=== PATIENT | male | born 1940 | race Caucasian/White ===

== ENCOUNTER 2018-06-24 11:03 | Day surgery (SDC) | payer MEDICARE, OTHER, SELFPAY ==
--- NOTE | 2018-06-24 07:31 | PM.PREOP ---
Pre-operative Note Interval Note Pre-op Check: Yes History & Physical Reviewed by Physician Changes: No
[2018-06-24] MEDS: PROPARACAINE 0.5% OPHTH SOL 2 DROPS EYE-OP (11:45)
[2018-06-24] MEDS: CATARACT EYE COMPOUND (10 DROPS/SYRINGE) 3 DROPS EYE-OP (11:55)
[2018-06-24 11:56] VITALS: BP 120/80; PULSE 60; RESP 16; TEMP 36.3; O2SAT 97; BMI 29.0
[2018-06-24 12:38] LABS: INR 2.5 (0.9-1.3)
--- NOTE | 2018-06-24 12:54 | SUR.OPER ---
Supine on eye stretcher, head on extension cradle secured with tape. Arms tucked at sides with blanket. Pillow under knees.
[2018-06-24] MEDS: MOXIFLOXACIN OPHTH DROPS 3 ML BOTTLE 2 DROPS INJ (12:56)
[2018-06-24] MEDS: PHENYLEPHRINE/LIDOCAINE VIAL (OR) 0.2 ML EYE-OP (12:56)
[2018-06-24] MEDS: CHONDROIDTIN/SOD HYALURONATE 1.05 ML SYRINGE INTRAOCULA (12:57)
[2018-06-24] MEDS: BALANCED SALT IRRIG SOLN NO.2 15 ML IRRIG.SOLN IRR (12:57)
[2018-06-24] MEDS: TRIAMCINOLONE 50 MG/5 ML VIAL INJ (12:57)
[2018-06-24] MEDS: HYALURONATE SODIUM 10 MG/ML SYRINGE INJ (12:58)
[2018-06-24] MEDS: NEOMYCIN/POLY/DEX OPHTH OINT 1 APPLIC EYE-LEFT (12:58)
[2018-06-24] MEDS: BALANCED SALT IRRIG SOLN NO.2 500 ML, EPINEPHrine 1 MG IRR (12:59)
[2018-06-24] MEDS: LIDOCAINE JELLY 2% 5 ML 1 APPLIC TOP (13:00)
[2018-06-24] MEDS: TETRACAINE 0.5% OPHTH DROPS 15 ML 2 DROPS EYE-LEFT (13:00)
[2018-06-24] MEDS: CARBACHOL 1.5 ML VIAL INJ (13:01)
[2018-06-24 13:34] VITALS: BP 127/82; PULSE 60; RESP 16; TEMP 36.3; O2SAT 95
[2018-06-24 13:50] VITALS: BP 122/78; PULSE 60; RESP 16; TEMP 36.4; O2SAT 96
--- NOTE | 2018-06-24 15:56 | P.OP_ITS ---
Operative Date/Time/Diagnoses Date of procedure: 06/24/18 Time of procedure: 12:45 Procedure & Clinicians Procedure: Date of service: June 24, 2018 Preoperative diagnoses: 1. Nuclear sclerotic and cortical cataract. 2. Cardiac pacemaker 3. Hypertension. 4. Anticoagulation with warfarin INR 2.5 today. Postoperative diagnoses: 1. Cataract removal with phacoemulsification with posterior chamber intraocular lens implant placed. Procedure: Phacoemulsification with posterior chamber intraocular lens implant Surgeon: Rose Mary Burns MD Complications: None Specimen: None Implant:ZCBOO+22.0 Blood loss: None Anesthesia: Topical with monitored standby Anesthesiologist: Shay De Paz M.D. Description of procedure: Patient is a 70 year old male with decreased vision due to cataract which is affecting activities of daily living. He wants surgery to improve vision. He did not stop his warfarin as instructed and INR is 2.5 today. Therefore topical over retrobulbar anesthetic is chosen. He was seen by Cardiology and cleared for surgery in the preoperative. He has taken to the operating room and given IV sedation. A few drops of tetracaine were placed. The eye is prepped using Betadine solution, and draped in the usual sterile fashion. Lidocaine gel 2% is placed in the conjunctival sac Temporal approach was made, a 1 mm side-port incision was made at the 12 oclock meridian. Phenylephrine 1.5% mixed with 1% xylocaine 0.2 cc was placed into the anterior chamber. Viscoat followed by Yola was then placed. A 2.6 mm clear incision with a 2.6 mm blade was placed at the 3 oclock meridian. A 360 degree capsulorrhexis style capsulotomy was then performed with a cystitome needle on a Healon. Hydrodelineation and hydrodissection were performed. The phacoemulsification unit is introduced, and sculpting notice used to groove the central lens. It is then removed in chopping mode. Epi nucleus is removed with epinuclear mode and irrigation aspiration was used to remove the peripheral cortex. The posterior capsule is polished. The intraocular lens is selected, inspected, power confirmed, and placed in the posterior chamber. The pupil was constricted. The wound was stromally hydrated and tested for leaks, there was none and was left sutureless. Vigamox 0.1 cc was placed into the anterior chamber. Kenalog 0.2 cc was placed in the superior subconjunctival space. A drop of antibiotic and was placed and the eye was patched and shielded. The patient was stable and returned to the recovery room in excellent condition. Dictated by: Rose Mary Burns MD Copy to: [facility] Same procedure as scheduled: Yes
== END 2018-06-24 13:58 | disposition home or self-care (01) ==
LOC: OR 11:08
PROVIDERS: Visit Provider Ophthalmology
DX: H25.12 Age-related nuclear cataract, left eye (principal); I10 Essential (primary) hypertension; E78.00 Pure hypercholesterolemia, unspecified; Z95.0 Presence of cardiac pacemaker; Z79.01 Long term (current) use of anticoagulants
CPT/HCPCS: 36415; 85610; J0171; J2250; J3010; J3301

== ENCOUNTER 2018-07-08 09:11 | Day surgery (SDC) | payer MEDICARE, OTHER, SELFPAY ==
--- NOTE | 2018-07-03 16:57 | PM.PREOP ---
Pre-operative Note Interval Note Pre-op Check: Yes History & Physical Reviewed by Physician Changes: No
[2018-07-08 09:56] VITALS: BP 127/82; PULSE 70; RESP 15; TEMP 36.1; O2SAT 96; BMI 29.0
[2018-07-08] MEDS: PROPARACAINE 0.5% OPHTH SOL 2 DROPS EYE-OP (10:07)
[2018-07-08] MEDS: CATARACT EYE COMPOUND (10 DROPS/SYRINGE) 3 DROPS EYE-OP (10:10)
[2018-07-08] MEDS: LIDOCAINE 2% 4 ML, BUPIVACAINE 0.5% (PF) 4 ML, HYALURONIDASE 150 UNIT INJ (11:01)
[2018-07-08] MEDS: BALANCED SALT IRRIG SOLN NO.2 15 ML IRRIG.SOLN IRR (11:01)
[2018-07-08] MEDS: CARBACHOL 1.5 ML VIAL INJ ×2 (11:02→11:04)
[2018-07-08] MEDS: CHONDROIDTIN/SOD HYALURONATE 1.05 ML SYRINGE INTRAOCULA ×2 (11:03→11:08)
[2018-07-08] MEDS: HYALURONATE SODIUM 10 MG/ML SYRINGE INJ (11:04)
[2018-07-08] MEDS: MOXIFLOXACIN OPHTH DROPS 3 ML BOTTLE 2 DROPS INJ ×2 (11:05→11:07)
[2018-07-08] MEDS: LIDOCAINE 1% W/EPI INJ 20 ML INJ (11:05)
[2018-07-08] MEDS: NEOMYCIN/POLY/DEX OPHTH OINT 1 APPLIC EYE-RIGHT (11:06)
[2018-07-08] MEDS: PHENYLEPHRINE/LIDOCAINE VIAL (OR) 0.2 ML EYE-OP (11:07)
[2018-07-08] MEDS: TRIAMCINOLONE 50 MG/5 ML VIAL INJ (11:08)
[2018-07-08] MEDS: BALANCED SALT IRRIG SOLN NO.2 500 ML, EPINEPHrine 1 MG IRR (11:09)
[2018-07-08 11:39] VITALS: BP 126/81; PULSE 60; RESP 16; TEMP 36.4; O2SAT 99
--- NOTE | 2018-07-08 15:33 | PM.OP.1 ---
Operative Date/Time/Diagnoses Date of procedure: 07/08/18 Time of procedure: 10:30 Procedure & Clinicians Procedure: Date of service: [] Preoperative diagnoses: 1. Right [] Cataract Postoperative diagnoses: 1. Cataract nuclear sclerotic. Procedure: Phacoemulsification with posterior chamber intraocular lens implant Surgeon: Rose Mary Burns MD Complications: None Specimen: None Implant:ZCBOO+21.5 Blood loss: None Anesthesia: Retrobulbar with monitored standby Anesthesiologist: Wilfrido Elmore M.D. Description of procedure: Patient is a 78 year old male with decreased vision due to cataract which is affecting activities of daily living. He wants surgery to improve vision. His INR is 1.6 and is felt safe to proceed with retrobulbar block. He has taken to the operating room and given IV sedation. A retrobulbar block insert consisting of 6 cc of 2% xylocaine without epinephrine mixed half and half with 0.5% Marcaine with 1 cc of hyaluronidase added is placed between the medial and lateral 1/3 of the inferior orbital rim. Lid akinesia is obtain with 1% xylocaine with epinephrine infiltrated along the lid margin. The eye is manually massaged for 30 sec, prepped using Betadine solution, and draped in the usual sterile fashion. Temporal approach was made, a 1 mm side-port incision was made at the 7:30 position. Phenylephrine 1.5% mixed with 1% xylocaine 0.2 cc was placed into the anterior chamber. Viscoat followed by Ryanon was then placed. A 2.6 mm clear incision with a 2.6 mm blade was placed at the 170 degree meridian. A 360 degree capsulorrhexis style capsulotomy was then performed with a cystitome needle on a Healon. Hydrodelineation and hydrodissection were performed. The phacoemulsification unit is introduced, and sculpting notice used to groove the central lens. It is then removed in chopping mode. Epi nucleus is removed with epinuclear mode and irrigation aspiration was used to remove the peripheral cortex. The posterior capsule is polished. The intraocular lens is selected, inspected, power confirmed, and placed in the posterior chamber. The pupil was constricted. The wound was stromally hydrated and tested for leaks, there was none and was left sutureless. Vigamox 0.1 cc was placed into the anterior chamber. Kenalog 0.2 cc was placed in the superior subconjunctival space. A drop of antibiotic and was placed and the eye was patched and shielded. The patient was stable and returned to the recovery room in excellent condition. Dictated by: Rose Mary Burns MD Copy to: [facility]
== END 2018-07-08 11:50 | disposition home or self-care (01) ==
LOC: OR 09:14
PROVIDERS: Visit Provider Ophthalmology
DX: H25.11 Age-related nuclear cataract, right eye (principal); I10 Essential (primary) hypertension; Z95.0 Presence of cardiac pacemaker
CPT/HCPCS: J0171; J2250; J2704; J3010; J3301; J3470

== ENCOUNTER → 2018-09-25 15:14 | Outpatient (CLI) | payer MEDICARE, OTHER, SELFPAY ==
--- NOTE | 2018-09-25 | DI.RAD.S_ITS ---
PROCEDURE: XR SHOULDER RT MIN 2V INDICATIONS: PAIN IN RT SHOULDER JOINT TECHNIQUE: 3 views of the shoulder were acquired. COMPARISON: None. FINDINGS: Bones: No fractures or dislocations. No suspicious bony lesions. Visualized ribs appear intact. Severe acromioclavicular degenerative narrowing is present. Mild to moderate glenohumeral narrowing is present without subluxation. There is a high riding appearance of the humeral head. Soft tissues: No suspicious soft tissue calcifications. IMPRESSION: 1. Severe degenerative acromioclavicular narrowing. 2. High riding appearance of the humeral head, which can be indicative of rotator cuff pathology. Dictated by: Evelyn Owens M.D. on 09/25/2018 at 16:58 Approved by: Evelyn Owens M.D. on 09/25/2018 at 16:58
== END ==
PROVIDERS: Visit Provider Family Medicine
DX: M25.511 Pain in right shoulder (principal); M19.011 Primary osteoarthritis, right shoulder
CPT/HCPCS: 73030

== ENCOUNTER → 2018-10-12 14:22 | Outpatient (CLI) | payer MEDICARE, OTHER, SELFPAY ==
[2018-10-12 15:04] LABS: INR 1.9 (0.9-1.3)
== END ==
PROVIDERS: PCP Family Medicine
DX: I48.0 Paroxysmal atrial fibrillation (principal); Z79.01 Long term (current) use of anticoagulants
CPT/HCPCS: 36415; 85610

== ENCOUNTER → 2021-12-11 11:35 | Outpatient (CLI) | payer MEDICARE, OTHER, SELFPAY ==
[2021-12-11 18:58] LABS: Add Manual Diff / Slide Review NO; Basophils Absolute Auto 0 /uL (0-100); Basophils Percent Auto 0.6 % (0-2); Eosinophils Absolute Auto 400 /uL (0-450); Eosinophils Percent Auto 7.2 % (2-4); Hematocrit 43.5 % (41-53); Lymphocytes Absolute Auto 1100 /uL (1100-4500); Lymphocytes Percent Auto 17.8 % (25-40); Mean Corpuscular HGB Conc 34.4 % (30-36); Mean Corpuscular Hemoglobin 32.5 PG (26-34); Mean Corpuscular Volume 94.4 fL (80-100); Monocytes Absolute Auto 700 /uL (0-900); Monocytes Percent Auto 12.6 % (3-14); Neutrophils Absolute Auto 3700 /uL (1500-7000); Neutrophils Percent Auto 61.8 % (50-75); Platelet Count 214 X10^3/uL (150-400); Red Blood Cell Count 4.61 X10^6/uL (4.5-5.9); Red Cell Distribution Width 13.9 % (11.6-14.8); White Blood Cell Count 5.9 X10^3/uL (4.5-11.0)
== END ==
PROVIDERS: PCP Family Medicine; Visit Provider Family Medicine
DX: I10 Essential (primary) hypertension (principal)
CPT/HCPCS: 85025

== ENCOUNTER → 2022-05-15 13:04 | Outpatient (CLI) | payer MEDICARE, BC, SELFPAY ==
--- NOTE | 2022-05-15 | DI.CT.S_ITS ---
PROCEDURE: CT CHEST WO CON INDICATIONS: Lobar pneumonia, unspecified organism TECHNIQUE: Noncontrast 5 mm thick sections acquired from the pulmonary apices to the posterior costophrenic angles. 1 mm lung window, 5 mm thick coronal and sagittal and 7 mm axial MIP reformats were then acquired. For radiation dose reduction, the following was used: automated exposure control, adjustment of mA and/or kV according to patient size. COMPARISON: None. FINDINGS: Image quality: Excellent. Lungs and pleura: Costophrenic angle peripheral reticulation versus atelectasis. There is also some scarring in the right middle lobe with volume loss. There are calcified granulomas. Follow-up for tiny nodules best seen on maximum intensity projection images is optional. No pleural effusions. Mediastinum: Left chest wall pulse generator with lead right ventricle electrode lead. Dilation of the main pulmonary artery. Ectatic ascending aorta measuring 4.2 centimeters. Coronary artery calcifications. No pathologic lymphadenopathy by size criteria. No hiatal hernia. Prominent indeterminate lymph nodes are present, for example prevascular node measuring 9 millimeters. Bones and chest wall: No acute or suspicious osseous abnormality. There is a suspected right thyroid nodule, which is not well seen on noncontrast imaging. Abdomen: Multiple liver cysts. Subcentimeter lesions are too small to characterize. Some cysts contain some calcifications. There are also suspected renal cysts, partially seen. IMPRESSION: Costophrenic angle opacities favored to be atelectasis. If there is sufficient clinical concern, high-resolution chest protocol could be obtained to differentiate this from early fibrosis/reticulation. Additionally, there is scarring in the right middle lobe, likely from prior infection. No pleural effusion or consolidation. Dilation of the main pulmonary artery from chronically high pulmonary pressures. Ectatic ascending aorta. Coronary artery calcifications. Nonemergent ultrasound could be used to further evaluate the suspected right thyroid nodule. Additional incidental findings above. Dictated by: Valentín Mahoney M.D. on 05/15/2022 at 17:42 Approved by: Valentín Mahoney M.D. on 05/15/2022 at 17:51
== END ==
PROVIDERS: PCP Family Medicine; Referring Provider Family Medicine; Visit Provider Family Medicine
DX: J18.1 Lobar pneumonia, unspecified organism (principal); I28.1 Aneurysm of pulmonary artery; I77.819 Aortic ectasia, unspecified site
CPT/HCPCS: 71250

== ENCOUNTER → 2022-10-09 13:18 | Outpatient (CLI) | payer MEDICARE, BC, SELFPAY ==
[2022-10-09 19:14] LABS: Add Manual Diff / Slide Review NO; Basophils Absolute Auto 100 /uL (0-100); Basophils Percent Auto 0.8 % (0-2); Eosinophils Absolute Auto 300 /uL (0-450); Eosinophils Percent Auto 4.6 % (2-4); Hematocrit 44.7 % (41-53); Hemoglobin 15.6 g/dL (13.5-17.5); Lymphocytes Absolute Auto 1100 /uL (1100-4500); Lymphocytes Percent Auto 15.1 % (25-40); Mean Corpuscular HGB Conc 34.8 % (30-36); Monocytes Absolute Auto 800 /uL (0-900); Monocytes Percent Auto 10.4 % (3-14); Neutrophils Absolute Auto 5000 /uL (1500-7000); Neutrophils Percent Auto 69.1 % (50-75); Platelet Count 242 X10^3/uL (150-400); Red Blood Cell Count 4.71 X10^6/uL (4.5-5.9); Red Cell Distribution Width 13.7 % (11.6-14.8); White Blood Cell Count 7.3 X10^3/uL (4.5-11.0)
[2022-10-09 19:48] LABS: Prostate Specific Antigen Scrn 1.15 ng/mL (0.1-4.0)
[2022-10-16 07:27] LABS: Percent Free Testosterone 1.75 % (1.50-4.20); Testosterone Total 623.1 ng/dL (264.0-916.0)
== END ==
PROVIDERS: PCP Family Medicine; Visit Provider Family Medicine
DX: Z12.5 Encounter for screening for malignant neoplasm of prostate (principal); I10 Essential (primary) hypertension; Z51.81 Encounter for therapeutic drug level monitoring; Z79.890 Hormone replacement therapy
CPT/HCPCS: 84402; 84403; 85025; G0103

== ENCOUNTER → 2023-05-20 14:00 | Outpatient (CLI) | payer MEDICARE, OTHER, SELFPAY ==
[2023-05-20 21:03] LABS: Add Manual Diff / Slide Review NO; Basophils Absolute Auto 100 /uL (0-100); Basophils Percent Auto 0.9 % (0-2); Eosinophils Absolute Auto 400 /uL (0-450); Eosinophils Percent Auto 5.5 % (2-4); Hemoglobin 14.1 g/dL (13.5-17.5); Lymphocytes Absolute Auto 1300 /uL (1100-4500); Lymphocytes Percent Auto 19.3 % (25-40); Mean Corpuscular HGB Conc 35.2 % (30-36); Mean Corpuscular Hemoglobin 33.3 PG (26-34); Mean Corpuscular Volume 94.7 fL (80-100); Monocytes Absolute Auto 500 /uL (0-900); Monocytes Percent Auto 8.3 % (3-14); Neutrophils Absolute Auto 4300 /uL (1500-7000); Platelet Count 247 X10^3/uL (150-400); Red Blood Cell Count 4.22 X10^6/uL (4.5-5.9); Red Cell Distribution Width 13.9 % (11.6-14.8); White Blood Cell Count 6.5 X10^3/uL (4.5-11.0)
[2023-05-20 22:22] LABS: Amylase 61 U/L (30-110); Gamma Glutamyl Transpeptidase 71 U/L (15-73); Lipase 206 U/L (23-300)
[2023-05-20 22:56] LABS: Prostate Specific Antigen Scrn 1.18 ng/mL (0.1-4.0)
[2023-05-26 08:08] LABS: Testosterone Free 10.47 ng/dL (5.00-21.00); Testosterone Total 523.6 ng/dL (264.0-916.0)
== END ==
PROVIDERS: PCP Family Medicine; Visit Provider Physician Assistant Medical
DX: E78.2 Mixed hyperlipidemia (principal); R10.9 Unspecified abdominal pain; R50.9 Fever, unspecified; Z12.5 Encounter for screening for malignant neoplasm of prostate; Z51.81 Encounter for therapeutic drug level monitoring; E29.1 Testicular hypofunction; Z79.890 Hormone replacement therapy
CPT/HCPCS: 82150; 82977; 83690; 84402; 84403; 85025; G0103

== ENCOUNTER → 2023-05-30 12:11 | Outpatient (CLI) | payer MEDICARE, OTHER, SELFPAY ==
--- NOTE | 2023-05-30 12:12 | DI.US.S_ITS ---
PROCEDURE: US ABDOMEN COMPLETE INDICATIONS: RIGHT UPPER QUADRANT PAIN AND BLOATING TECHNIQUE: Real-time scanning was performed of the abdominal and retroperitoneal organs, with image documentation. COMPARISON: [facility], CT, CT CHEST WO CON, 05/15/2022, 13:13. FINDINGS: Liver: The liver is normal size and contains several unilocular and septated cystic structures. Many are simple or finally septated, however there is a partially exophytic, round cystic structure in the anterior inferior right hepatic lobe measuring 8.4 x 8.9 x 8.1 cm which contains several septations, possible central solid component. Immediately inferior to this is another large cyst measuring 8.5 cm with dependently layering, avascular, hyperdense strandy soft tissue. No other complex or solid masses are seen in the liver. Gallbladder: The gallbladder is only partially filled and contains dependently layering material, either stones or sludge. The wall is normal thickness at 2 mm. No pericholecystic fluid or sonographic Clark sign. Biliary ducts: No visible intrahepatic biliary dilatation. The extrahepatic biliary tree was not seen. Pancreas: Not well seen due to bowel gas. Spleen: Spleen is normal in size and homogeneous in echotexture. Kidneys: Both kidneys demonstrate several large simple cysts, the largest on the right measures about 7.7 cm and the largest on the left is septated and measures about 8.8 cm. Aorta: Visualized aorta is normal in caliber at less than 3 cm. Iliacs: Proximal common iliac arteries are normal in caliber at less than 2.5 cm. IVC: Intrahepatic inferior vena cava is patent. Miscellaneous: No free abdominal fluid. IMPRESSION: 1. Polycystic liver and kidney disease. 2. Partially exophytic, complex anterior right lobe 8.9 cm liver cyst with differential diagnosis of benign cystic neoplasm, post infectious, post traumatic/hemorrhagic cyst, and less likely malignant neoplasm. There is an adjacent possibly hemorrhagic 8.5 cm cyst. Further evaluation with contrast-enhanced hepatic protocol MRI is recommended. 3. No visible solid renal masses. 4. There was suboptimal visualization of a few structures due to overlying bowel gas. Dictated by: Larissa Jean M.D. on 05/30/2023 at 15:13 Approved by: Larissa Jean M.D. on 05/30/2023 at 15:26
== END ==
PROVIDERS: PCP Family Medicine; Referring Provider Physician Assistant Medical; Visit Provider Physician Assistant Medical
DX: Q44.6 Cystic disease of liver (principal); Q61.3 Polycystic kidney, unspecified; K76.89 Other specified diseases of liver; R10.9 Unspecified abdominal pain; R50.9 Fever, unspecified
CPT/HCPCS: 76700

== ENCOUNTER → 2023-12-26 09:25 | Outpatient (CLI) | payer MEDICARE, OTHER, SELFPAY ==
[2023-12-26 19:43] LABS: Add Manual Diff / Slide Review NO; Basophils Absolute Auto 100 /uL (0-100); Basophils Percent Auto 1.3 % (0-2); Eosinophils Absolute Auto 300 /uL (0-450); Eosinophils Percent Auto 4.9 % (2-4); Hematocrit 43.1 % (41-53); Lymphocytes Absolute Auto 1200 /uL (1100-4500); Lymphocytes Percent Auto 18.8 % (25-40); Mean Corpuscular HGB Conc 34.8 % (30-36); Mean Corpuscular Hemoglobin 33.4 PG (26-34); Mean Corpuscular Volume 95.9 fL (80-100); Monocytes Absolute Auto 600 /uL (0-900); Monocytes Percent Auto 9.7 % (3-14); Neutrophils Absolute Auto 4100 /uL (1500-7000); Neutrophils Percent Auto 65.3 % (50-75); Platelet Count 275 X10^3/uL (150-400); Red Blood Cell Count 4.49 X10^6/uL (4.5-5.9); Red Cell Distribution Width 14.3 % (11.6-14.8); White Blood Cell Count 6.3 X10^3/uL (4.5-11.0)
[2023-12-26 19:55] LABS: Alanine Aminotransferase 36 IU/L (<50); Albumin 4.2 g/dL (3.5-5.0); Albumin Globulin Ratio 1.1 (1.0-2.8); Alkaline Phosphatase 111 U/L (38-126); Aspartate Aminotransferase 61 IU/L (17-59); BUN Creatinine Ratio 20.3 (6-22); Bilirubin Total 1.2 mg/dL (0.2-1.3); Blood Urea Nitrogen 16 mg/dL (9-20); Calcium 9.8 mg/dL (8.4-10.2); Carbon Dioxide 30 mmol/L (22-32); Chloride 103 mmol/L (98-107); Cholesterol 133 mg/dL (140-199); Estimated Glomerular Filt Rate > 60 mL/min (>60); Globulin 3.7 g/dL (1.7-4.1); Glucose 105 mg/dL (80-110); HDL Cholesterol 52 mg/dL (40-60); HEMOLYSIS < 15 (0-50); LDL Cholesterol Calculated 66 mg/dL (<100); Potassium 3.8 mmol/L (3.4-5.1); Sodium 140 mmol/L (137-145); Total Protein 7.9 g/dL (6.3-8.2); Triglycerides 76 mg/dL (35-150)
[2023-12-26 20:20] LABS: Prostate Specific Antigen Scrn 1.04 ng/mL (0.1-4.0); TSH w/ Reflex to FT4 0.63 uIU/mL (0.47-4.68)
[2024-01-02 11:26] LABS: Testosterone Free 5.85 ng/dL (5.00-21.00); Testosterone Total 278.7 ng/dL (264.0-916.0)
== END ==
PROVIDERS: PCP Family Medicine; Visit Provider Family Medicine
DX: Z12.5 Encounter for screening for malignant neoplasm of prostate (principal); I25.10 Atherosclerotic heart disease of native coronary artery without angina pectoris; E29.1 Testicular hypofunction; Z51.81 Encounter for therapeutic drug level monitoring; E78.2 Mixed hyperlipidemia; I10 Essential (primary) hypertension; Z79.890 Hormone replacement therapy; Z79.01 Long term (current) use of anticoagulants
CPT/HCPCS: 80053; 80061; 84402; 84403; 84443; 85025; G0103

== ENCOUNTER → 2024-12-07 13:23 | Outpatient (CLI) | payer MEDICARE, OTHER, SELFPAY ==
[2024-12-07 18:49] LABS: Add Manual Diff / Slide Review NO; Basophils Absolute Auto 100 /uL (0-100); Basophils Percent Auto 0.9 % (0-2); Eosinophils Absolute Auto 300 /uL (0-450); Eosinophils Percent Auto 5.2 % (2-4); Hematocrit 43.5 % (41-53); Hemoglobin 14.8 g/dL (13.5-17.5); Lymphocytes Absolute Auto 1100 /uL (1100-4500); Lymphocytes Percent Auto 17.4 % (25-40); Mean Corpuscular HGB Conc 33.9 % (30-36); Mean Corpuscular Hemoglobin 32.9 PG (26-34); Mean Corpuscular Volume 96.9 fL (80-100); Monocytes Absolute Auto 700 /uL (0-900); Monocytes Percent Auto 10.5 % (3-14); Neutrophils Absolute Auto 4200 /uL (1500-7000); Platelet Count 261 X10^3/uL (150-400); Red Blood Cell Count 4.49 X10^6/uL (4.5-5.9); Red Cell Distribution Width 14.7 % (11.6-14.8); White Blood Cell Count 6.4 X10^3/uL (4.5-11.0)
[2024-12-07 19:21] LABS: HEMOLYSIS < 15 (0-50)
[2024-12-07 19:26] LABS: Alanine Aminotransferase 41 IU/L (<50); Albumin 4.1 g/dL (3.5-5.0); Albumin Globulin Ratio 1.3 (1.0-2.8); Alkaline Phosphatase 102 U/L (38-126); Aspartate Aminotransferase 63 IU/L (17-59); BUN Creatinine Ratio 18.5 (6-22); Bilirubin Total 1.1 mg/dL (0.2-1.3); Bilirubin Unconjugated 0.6 mg/dL (0.0-1.1); Blood Urea Nitrogen 15 mg/dL (9-20); Calcium 9.8 mg/dL (8.4-10.2); Carbon Dioxide 29 mmol/L (22-32); Chloride 103 mmol/L (98-107); Estimated Glomerular Filt Rate > 60 mL/min (>60); Globulin 3.1 g/dL (1.7-4.1); Glucose 98 mg/dL (80-110); Potassium 4.1 mmol/L (3.4-5.1); Sodium 141 mmol/L (137-145); Total Protein 7.2 g/dL (6.3-8.2)
[2024-12-07 20:00] LABS: Prostate Specific Antigen Scrn 1.03 ng/mL (0.1-4.0)
== END ==
PROVIDERS: PCP Family Medicine; Visit Provider Family Medicine
DX: Z12.5 Encounter for screening for malignant neoplasm of prostate (principal); I48.21 Permanent atrial fibrillation; I25.10 Atherosclerotic heart disease of native coronary artery without angina pectoris; Z51.81 Encounter for therapeutic drug level monitoring; E29.1 Testicular hypofunction; Z79.890 Hormone replacement therapy; E78.2 Mixed hyperlipidemia; I10 Essential (primary) hypertension; Z79.899 Other long term (current) drug therapy
CPT/HCPCS: 80053; 80076; 84402; 84403; 85025; G0103

== ENCOUNTER → 2025-01-11 13:56 | Outpatient (CLI) | payer MEDICARE, OTHER, SELFPAY ==
[2025-01-29 11:10] LABS: Percent Free Testosterone 2.42 % (1.50-4.20); Testosterone Free 5.95 ng/dL (5.00-21.00)
== END ==
PROVIDERS: PCP Family Medicine; Visit Provider Family Medicine
DX: E29.1 Testicular hypofunction (principal); Z79.890 Hormone replacement therapy; Z51.81 Encounter for therapeutic drug level monitoring
CPT/HCPCS: 84402; 84403

== ENCOUNTER → 2025-03-08 13:46 | Outpatient (CLI) | payer MEDICARE, OTHER, SELFPAY ==
[2025-03-08 14:31] LABS: Hematocrit 38.6 % (41-53); Hemoglobin 13.6 g/dL (13.5-17.5); Mean Corpuscular HGB Conc 35.2 % (30-36); Mean Corpuscular Volume 96.5 fL (80-100); Platelet Count 244 X10^3/uL (150-400); Red Blood Cell Count 4.01 X10^6/uL (4.5-5.9); Red Cell Distribution Width 15.2 % (11.6-14.8); White Blood Cell Count 5.8 X10^3/uL (4.5-11.0)
[2025-03-08 15:23] LABS: Alanine Aminotransferase 38 IU/L (<50); Albumin 3.7 g/dL (3.5-5.0); Albumin Globulin Ratio 1.2 (1.0-2.8); Alkaline Phosphatase 100 U/L (38-126); Aspartate Aminotransferase 63 IU/L (17-59); BUN Creatinine Ratio 18.7 (6-22); Blood Urea Nitrogen 14 mg/dL (9-20); Calcium 9.3 mg/dL (8.4-10.2); Carbon Dioxide 29 mmol/L (22-32); Chloride 101 mmol/L (98-107); Cholesterol 97 mg/dL (140-199); Estimated Glomerular Filt Rate > 60 mL/min (>60); Globulin 3.2 g/dL (1.7-4.1); Glucose 120 mg/dL (70-99); HDL Cholesterol 41 mg/dL (40-60); HEMOLYSIS < 15 (0-50); LDL Cholesterol Calculated 42 mg/dL (<100); Potassium 3.6 mmol/L (3.4-5.1); Sodium 137 mmol/L (137-145); Total Protein 6.9 g/dL (6.3-8.2); Triglycerides 69 mg/dL (35-150)
== END ==
LOC: LAB 13:55
PROVIDERS: PCP Family Medicine; Referring Provider Nurse Practitioner Family; Visit Provider Nurse Practitioner Family
DX: E78.2 Mixed hyperlipidemia (principal); I48.19 Other persistent atrial fibrillation
CPT/HCPCS: 36415; 80053; 80061; 85027